=== PATIENT | female | born 1995 ===

== ENCOUNTER 2021-10-19 18:20 | Observation (INO) ==
[2021-10-19 19:16] LABS: ABS Monocytes 0.6 10^3/ul (0-0.8); ABS Neutrophils 5.7 10^3/ul (1.5-7.7); Eosinophil % 0.1 %; Hematocrit 33 % (35-47); Hemoglobin 11.3 g/dL (12.0-16.0); Lymphocyte % 13.6 %; Mean Corpuscular HGB Conc 35 g/dL (31-36); Mean Corpuscular Hemoglobin 31 pg (27-31); Mean Corpuscular Volume 89 fL (80-97); Mean Platelet Volume 8.7 fL (7.4-10.4); Platelet Count 188 10^3/uL (150-450); Red Blood Count 3.67 10^6 /uL (3.70-4.87); Red Cell Distribution Width 13 % (10-15); White Blood Count 7.3 10^3/uL (3.5-10.8)
[2021-10-19 19:26] LABS: Activated Partial Thrombo Time 42.3 seconds (26.0-38.0); INR 1.85 (0.86-1.15)
[2021-10-19 19:36] LABS: Albumin 4.3 g/dL (3.2-5.2); Albumin/Globulin Ratio 1.3 (1-3); Calcium 9.3 mg/dL (8.6-10.3); Globulin 3.2 g/dL (2-4); Potassium 3.4 mmol/L (3.5-5.0); Total Bilirubin 0.7 mg/dL (0.2-1.0); Total Protein 7.5 g/dL (6.4-8.9); eGFR CKD-EPI 132.1 (>60)
[2021-10-19 19:38] LABS: Troponin I 0.02 ng/mL (<0.03)
[2021-10-19 20:54] LABS: Magnesium 1.9 mg/dL (1.9-2.7)
[2021-10-20] MEDS ORDERED: Potassium Chlor 20 meq TAB.ER PO ONE (08:37)
[2021-10-20] MEDS: Lidocaine PATCH 5% PATCH TRANSDERM PRN ×2 (12:16→15:00)
[2021-10-20 13:40] LABS: HCG Pregnancy < 0.60 mIU/mL
[2021-10-20 18:10] VITALS: BP 92/47
[2021-10-20] MEDS ORDERED: Lidocaine Patch REMOVE NOTE PATCH OFF SCH (21:00)
== END 2021-10-20 18:10 | disposition home or self-care (01) ==
LOC: EDHOLD 18:20 → ED 18:20 → SUATTDRO 22:16 → MED 10-20 00:07
PROVIDERS: ADMIT Internal Medicine; ATTEND Internal Medicine